=== PATIENT | male | born 1960 | race Caucasian/White ===

== ENCOUNTER → 2019-09-12 14:09 | Outpatient (BNVA) | payer MEDICAID, SELFPAY | PROVIDERS: Family Provider Family Medicine; PCP Family Medicine; Visit Provider Specialist | DX: G50.0 Trigeminal neuralgia (principal); G51.32 Clonic hemifacial spasm, left; F17.210 Nicotine dependence, cigarettes, uncomplicated | CPT/HCPCS: 64612; 99213; J0585 ==

== ENCOUNTER → 2019-12-26 13:13 | Outpatient (BNVA) | payer MEDICAID, SELFPAY | PROVIDERS: Family Provider Family Medicine; PCP Family Medicine; Visit Provider Specialist | DX: G51.32 Clonic hemifacial spasm, left (principal); G50.0 Trigeminal neuralgia; F17.210 Nicotine dependence, cigarettes, uncomplicated | CPT/HCPCS: 64612; 99212; J0585 ==

== ENCOUNTER → 2020-04-16 08:59 | Outpatient (BNVA) | payer MEDICAID, SELFPAY | PROVIDERS: Family Provider Family Medicine; PCP Family Medicine; Visit Provider Specialist | DX: G50.0 Trigeminal neuralgia (principal); G51.32 Clonic hemifacial spasm, left | CPT/HCPCS: 64612; 99213; J0585 ==

== ENCOUNTER → 2020-07-09 08:21 | Outpatient (BNVA) | payer MEDICAID, SELFPAY | PROVIDERS: Family Provider Family Medicine; PCP Family Medicine; Visit Provider Specialist | DX: G50.0 Trigeminal neuralgia (principal); G51.32 Clonic hemifacial spasm, left; F17.210 Nicotine dependence, cigarettes, uncomplicated | CPT/HCPCS: 64612; 99213; J0585 ==

== ENCOUNTER → 2020-10-01 11:27 | Outpatient (BNVA) | payer MEDICAID, SELFPAY | PROVIDERS: Family Provider Family Medicine; PCP Family Medicine; Visit Provider Specialist | DX: G51.32 Clonic hemifacial spasm, left (principal); G50.0 Trigeminal neuralgia; Z79.899 Other long term (current) drug therapy; F17.210 Nicotine dependence, cigarettes, uncomplicated | CPT/HCPCS: 64612; J0585 ==

== ENCOUNTER 2020-10-01 12:37 | Outpatient (CLI) | payer MEDICAID, SELFPAY ==
[2020-10-01 14:50] LABS: Amphetamines Screen Urine Negative (Negative); Barbiturates Screen Urine Negative (Negative); Benzodiazepines Screen Urine Positive (Negative); Cocaine Screen Urine Negative (Negative); Opiate Screen Urine Positive (Negative); PCP Screen Urine Negative (Negative); THC Screen Urine Negative (Negative)
== END 2020-10-01 12:38 | disposition home or self-care (01) ==
LOC: LAB 12:39
PROVIDERS: Family Provider Family Medicine; PCP Family Medicine; Visit Provider Specialist
DX: Z79.899 Other long term (current) drug therapy (principal)
CPT/HCPCS: 80306

== ENCOUNTER → 2020-12-24 12:41 | Outpatient (BNVA) | payer MEDICAID, SELFPAY | PROVIDERS: Family Provider Family Medicine; PCP Family Medicine; Visit Provider Specialist | DX: G50.0 Trigeminal neuralgia (principal); G51.32 Clonic hemifacial spasm, left; F17.210 Nicotine dependence, cigarettes, uncomplicated | CPT/HCPCS: 64612; J0585 ==

== ENCOUNTER → 2021-03-18 12:40 | Outpatient (BNVA) | payer MEDICAID, SELFPAY | PROVIDERS: Family Provider Family Medicine; PCP Family Medicine; Visit Provider Specialist | DX: G51.32 Clonic hemifacial spasm, left (principal); G50.0 Trigeminal neuralgia | CPT/HCPCS: 64612; 99213; 99214; J0585 ==

== ENCOUNTER → 2021-06-24 12:05 | Outpatient (BNVA) | payer MEDICAID, SELFPAY | PROVIDERS: Family Provider Family Medicine; PCP Family Medicine; Visit Provider Specialist | DX: G50.0 Trigeminal neuralgia (principal); G51.32 Clonic hemifacial spasm, left | CPT/HCPCS: 64612; 99214; J0585 ==

== ENCOUNTER → 2021-09-16 13:21 | Outpatient (BNVA) | payer MEDICAID, SELFPAY | PROVIDERS: Family Provider Family Medicine; PCP Family Medicine; Visit Provider Specialist | DX: G50.0 Trigeminal neuralgia (principal); G51.32 Clonic hemifacial spasm, left | CPT/HCPCS: 64612; J0585 ==

== ENCOUNTER → 2021-12-09 13:38 | Outpatient (BNVA) | payer MEDICAID, SELFPAY | PROVIDERS: Family Provider Family Medicine; PCP Family Medicine; Visit Provider Specialist | DX: G50.0 Trigeminal neuralgia (principal); G51.32 Clonic hemifacial spasm, left | CPT/HCPCS: 64612; 99213; J0585 ==

== ENCOUNTER → 2022-03-03 12:50 | Outpatient (BNVA) | payer MEDICAID, SELFPAY | PROVIDERS: Family Provider Family Medicine; PCP Family Medicine; Visit Provider Specialist | DX: G50.0 Trigeminal neuralgia (principal); G51.32 Clonic hemifacial spasm, left | CPT/HCPCS: 64612; 99213; 99214; J0585 ==

== ENCOUNTER → 2022-06-02 12:18 | Outpatient (BNVA) | payer MEDICAID, SELFPAY | PROVIDERS: Family Provider Family Medicine; PCP Family Medicine; Visit Provider Specialist | DX: G50.0 Trigeminal neuralgia (principal); G51.32 Clonic hemifacial spasm, left | CPT/HCPCS: 64612; 99213; J0585 ==

== ENCOUNTER → 2022-08-25 12:51 | Outpatient (BNVA) | payer MEDICAID, SELFPAY | PROVIDERS: Family Provider Family Medicine; PCP Family Medicine; Visit Provider Specialist | DX: G51.32 Clonic hemifacial spasm, left (principal); G50.0 Trigeminal neuralgia | CPT/HCPCS: 64612; 99214; J0585 ==

== ENCOUNTER → 2022-11-18 13:13 | Outpatient (BNVA) | payer MEDICAID, SELFPAY | PROVIDERS: Family Provider Family Medicine; PCP Family Medicine; Visit Provider Specialist | DX: G51.32 Clonic hemifacial spasm, left (principal); G50.0 Trigeminal neuralgia | CPT/HCPCS: 64612; 99213; J0585 ==

== ENCOUNTER → 2023-02-23 13:03 | Outpatient (BNVA) | payer MEDICAID, SELFPAY | PROVIDERS: Family Provider Family Medicine; PCP Family Medicine; Visit Provider Specialist | DX: G50.0 Trigeminal neuralgia (principal); G51.32 Clonic hemifacial spasm, left | CPT/HCPCS: 64612; 99213; J0585 ==

== ENCOUNTER → 2023-05-25 14:01 | Outpatient (BNVA) | payer MEDICARE, MEDICAID, SELFPAY | PROVIDERS: Family Provider Family Medicine; PCP Family Medicine; Visit Provider Specialist | DX: G51.32 Clonic hemifacial spasm, left (principal) | CPT/HCPCS: 64612; 99213; J0585 ==

== ENCOUNTER → 2023-08-24 13:34 | Outpatient (BNVA) | payer MEDICARE, MEDICAID, SELFPAY | PROVIDERS: Family Provider Family Medicine; PCP Family Medicine; Visit Provider Specialist | DX: G51.32 Clonic hemifacial spasm, left (principal); G50.0 Trigeminal neuralgia | CPT/HCPCS: 64612; J0585 ==

== ENCOUNTER → 2023-11-23 15:00 | Outpatient (BNVA) | payer MEDICARE, MEDICAID, SELFPAY | PROVIDERS: Family Provider Family Medicine; PCP Family Medicine; Visit Provider Specialist | DX: G51.32 Clonic hemifacial spasm, left (principal) | CPT/HCPCS: 64612; 99213; J0585 ==

== ENCOUNTER → 2024-03-07 12:55 | Outpatient (BNVA) | payer MEDICARE, MEDICAID, SELFPAY | PROVIDERS: Family Provider Family Medicine; PCP Family Medicine; Visit Provider Specialist | DX: G50.0 Trigeminal neuralgia (principal); G51.32 Clonic hemifacial spasm, left | CPT/HCPCS: 64612; 99213; J0585 ==

== ENCOUNTER → 2024-06-12 14:10 | Outpatient (BNVA) | payer MEDICARE, MEDICAID, SELFPAY | PROVIDERS: Family Provider Family Medicine; PCP Family Medicine; Visit Provider Specialist | DX: G51.32 Clonic hemifacial spasm, left (principal) | CPT/HCPCS: 64612; 99212; J0585 ==

== ENCOUNTER → 2024-10-25 13:08 | Outpatient (BNVA) | payer MEDICARE, MEDICAID, SELFPAY | PROVIDERS: Family Provider Family Medicine; PCP Family Medicine; Visit Provider Specialist | DX: G51.32 Clonic hemifacial spasm, left (principal) | CPT/HCPCS: 64612; 99213; J0585; J9999 ==

== ENCOUNTER → 2025-02-06 11:59 | Outpatient (BNVA) | payer MEDICARE, MEDICAID, SELFPAY | PROVIDERS: Family Provider Family Medicine; PCP Family Medicine; Visit Provider Specialist | DX: G51.32 Clonic hemifacial spasm, left (principal) | CPT/HCPCS: 64612; 99213; J0585; J9999 ==

== ENCOUNTER → 2025-06-05 10:01 | Outpatient (BNVA) | payer MEDICARE, MEDICAID, SELFPAY | PROVIDERS: Family Provider Family Medicine; PCP Family Medicine; Visit Provider Specialist | DX: G51.32 Clonic hemifacial spasm, left (principal); G50.0 Trigeminal neuralgia | CPT/HCPCS: 64612; J9999 ==